=== PATIENT | male | born 1970 | race Caucasian/White ===

== ENCOUNTER 2020-11-29 22:55 | Emergency (ER) | payer MEDICARE, OTHER ==
--- NOTE | 2020-11-30 02:24 | CRLCT ---
For Patients: As a result of the Century Cures Act, medical imaging exams and procedure reports are released immediately into your electronic medical record. You may view this report before your referring provider. If you have questions, please contact your health care provider. INDICATION: Diplopia. Headache. TECHNIQUE: CT head without contrast. COMPARISON: None. FINDINGS: Cerebral parenchyma: No evidence of acute territorial infarct. No acute intraparenchymal hemorrhage. No significant mass effect/midline shift. Normal biggs-white matter differentiation. Extra-axial spaces: No extra-axial collection or hemorrhage. Ventricles: Unremarkable. Calvarium: Intact. Visualized paranasal sinuses/mastoid air cells: Mucosal opacification of the sphenoid sinuses. Posterior fossa: No cerebellar tonsillar herniation. Visualized orbits: Unremarkable. IMPRESSION: No acute intracranial abnormality. Please note that all CT scans at this facility use dose modulation, iterative reconstruction, and/or weight-based dosing when appropriate to reduce radiation dose to as low as reasonably achievable. Dictated by Sho Gleason MD @ 11/30/2020 2:22:[address] Sho Gleason @ Nov 30 2020 2:22AM
--- NOTE | 2020-11-30 03:00 | EDM.PDOC ---
ED HPI GENERAL MEDICAL PROBLEM - General Chief Complaint: General Stated Complaint: DOUBLE VISION Time Seen by Provider: 11/30/20 00:13 Source of Information: Reports: Patient, Family History Limitations: Reports: No Limitations - History of Present Illness INITIAL COMMENTS - FREE TEXT/NARRATIVE: Joel is a 50-year-old male presenting to the ED for evaluation of diplopia and staggering gait. Patient was in his usual state of health which includes being diabetic on insulin when he had the onset of his symptoms on Thursday developing diplopia. He was seen earlier this week by an certification and selection specialist who crafted a prism for him and told him that he had a diabetic stroke causing the double vision. The patient has subsequently developed a headache likely due to the double vision and some difficulty with ambulating with a staggering gait also likely due to the double vision. He has no new weakness, numbness or tingling, difficulty with breathing or swallowing. He denies any trauma. His glycemic control has been reasonable although he swings from the 50s all the way up to 350s when looking at his annika glucose monitor. The patient has a remote history of methamphetamine abuse but has moved in with his sister and no longer does this. He also abstains from alcohol. He does spend quite a bit of time outside in the sunlight on his fishing boat. He was actually fishing when he started to develop the double vision. - Related Data Allergies Allergy/AdvReac Type Severity Reaction Status Date / Time Penicillins Allergy Cannot Verified 11/29/20 23:46 Remember Past Medical History HEENT History: Reports: Cataract, Impaired Vision Cardiovascular History: Reports: CAD Gastrointestinal History: Reports: Cirrhosis, GERD Genitourinary History: Reports: Diabetic Nephropathy Musculoskeletal History: Reports: Osteoarthritis Neurological History: Reports: Neuropathy, Diabetic Psychiatric History: Reports: Panic Attack Endocrine/Metabolic History: Reports: Diabetes, Type II, Hypothyroidism - Past Surgical History HEENT Surgical History: Reports: Cataract Surgery Musculoskeletal Surgical History: Reports: Carpal Tunnel Social & Family History - Tobacco Use Tobacco Use Status *Q: Never Tobacco User - Recreational Drug Use Recreational Drug Use: Yes Drug Use in Last 12 Months: Yes Recreational Drug Type: Reports: Methamphetamine ED ROS GENERAL - Review of Systems Review Of Systems: See Below Constitutional: Reports: No Symptoms HEENT: Reports: Vision Change (Diplopia) Respiratory: Reports: No Symptoms Cardiovascular: Reports: No Symptoms Endocrine: Reports: No Symptoms GI/Abdominal: Reports: No Symptoms : Reports: No Symptoms Musculoskeletal: Reports: No Symptoms Skin: Reports: No Symptoms Neurological: Reports: Headache, Difficulty Walking (Patient was having difficulty walking today with a staggering gait. It is unclear whether this was due to his impaired vision or actual incoordination. The patient seems to do better with 1 eye closed.) Psychiatric: Reports: No Symptoms Hematologic/Lymphatic: Reports: No Symptoms Immunologic: Reports: No Symptoms ED EXAM, GENERAL - Physical Exam Exam: See Below Exam Limited By: No Limitations General Appearance: Alert, No Apparent Distress Eye Exam: Bilateral Eye: EOMI (Patient has a disconjugate gaze causing diplopia), PERRL Throat/Mouth: Normal Inspection, Normal Lips, Normal Oropharynx, Normal Voice, No Airway Compromise Head: Atraumatic, Normocephalic Neck: Normal Inspection, Supple, Non-Tender, Full Range of Motion Respiratory/Chest: No Respiratory Distress, Lungs Clear, Normal Breath Sounds Cardiovascular: Normal Peripheral Pulses, Regular Rate, Rhythm, No Murmur Peripheral Pulses: 2+: Radial (L), Radial (R), Posterior Tibial (L), Posterior Tibial (R) GI/Abdominal: Normal Bowel Sounds, Soft, Non-Tender Back Exam: Normal Inspection Extremities: Normal Inspection Neurological: Alert, Oriented, Normal Cognition, No Motor/Sensory Deficits. No: CN II-XII Intact (There is disconjugate gaze causing diplopia when doing the extraocular motion. At no point does the gaze come back to focus on one point.) Psychiatric: Normal Affect, Normal Mood Skin Exam: Warm, Dry, Other (Extremely tanned) Lymphatic: No Adenopathy Course - Vital Signs Last Recorded V/S: Last Vital Signs Temp 36.8 C 11/29/20 23:59 Pulse 87 11/30/20 02:35 Resp 20 11/30/20 02:35 BP 160/84 H 11/30/20 02:35 Pulse Ox 95 11/30/20 02:35 - Orders/Labs/Meds Orders: Active Orders 24 hr Category Date Time Status DRUG SCREEN, URINE [URCHEM] Stat Lab 11/30/20 02:35 Ordered UA W/MICROSCOPIC [URIN] Stat Lab 11/30/20 02:35 Ordered Labs: Laboratory Tests 11/30/20 11/30/20 Range/Units 00:48 00:48 WBC 8.4 (4.5-11.0) K/uL RBC 4.75 (4.30-5.90) M/uL Hgb 14.9 (12.0-15.0) g/dL Hct 41.2 (40.0-54.0) % MCV 87 (80-98) fL MCH 31 (27-31) pg MCHC 36 (32-36) % Plt Count 87 L (150-400) K/uL Neut % (Auto) 57.3 (36-66) % Lymph % (Auto) 29.5 (24-44) % Arthur % (Auto) 9.6 H (2-6) % Eos % (Auto) 3.1 (2-4) % Baso % (Auto) 0.5 (0-1) % Sodium 142 (140-148) mmol/L Potassium 3.4 L (3.6-5.2) mmol/L Chloride 106 (100-108) mmol/L Carbon Dioxide 24 (21-32) mmol/L Anion Gap 15.4 H (5.0-14.0) mmol/L BUN 23 H (7-18) mg/dL Creatinine 1.2 (0.8-1.3) mg/dL Est Cr Clr Drug Dosing 77.57 mL/min Estimated GFR (MDRD) > 60 (>60) Glucose 110 H (74-106) mg/dL Calcium 8.7 (8.5-10.1) mg/dL Total Bilirubin 1.8 H (0.2-1.0) mg/dL AST 61 H (15-37) U/L ALT 58 (12-78) U/L Alkaline Phosphatase 150 H (46-116) U/L C-Reactive Protein 0.46 H (0.0-0.3) mg/dL Total Protein 7.2 (6.4-8.2) g/dL Albumin 3.2 L (3.4-5.0) g/dL Globulin 4.0 H (2.3-3.5) g/dL Albumin/Globulin Ratio 0.8 L (1.2-2.2) - Radiology Interpretation Free Text/Narrative:: Reviewed the CT of the head without contrast showing no acute intracranial abnormalities, normal biggs-white differentiation without evidence of an acute stroke, bleed, mass, or midline shift. - Re-Assessments/Exams Free Text/Narrative Re-Assessment/Exam: 11/30/20 02:47 I reviewed the patient's CT of the head without contrast. There is no evidence for an acute or subacute stroke. There is no mass or midline shift. There is no intracranial hemorrhage or calvarial abnormality. I reviewed the patient's labs showing a leukocyte count of 8.4 with a hemoglobin of 14.9 and a hematocrit of 41.2. The patient's platelet count is low at 87, 000. His comprehensive metabolic panel is significant for a sodium of 142 with a potassium of 3.4, chloride of 106 with a bicarbonate of 24, BUN of 23 with a creatinine of 1.2 and a glucose of 110. GFR is calculated at greater than 60. The patient's AST is mildly elevated at 61 with an ALT of 58 and alkaline phosphatase of 150. His bilirubin total is elevated 1.8. C-reactive protein is mildly elevated at 0.46. 11/30/20 03:00 agata the case with the stroke neuro service at [facility]. He feels that this is probably a 3rd nerve palsy due to the diabetes. He reaffirmed that the patient should use the prism as much as possible and this may improve on its own. There is really no specific treatment other than the prism. Good glycemic control will help. There is no evidence on his work-up of an acute stroke. I am still awaiting his urinalysis results. 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 who feels that this is likely a 3rd nerve palsy indicating injury or inflammation of the nerve that controls your eye movement causing the double vision. This may be temporary condition that will require time to heal and repair itself. He recommended continuing using the prism glasses. Your work-up today has not shown any evidence for an acute stroke. Continue to work on better glycemic control which will likely improve your recovery from this injury. This nerve palsy is directly related to your diabetes. Sepsis Event Note (ED) - Evaluation Sepsis Screening Result: No Definite Risk - Focused Exam Vital Signs: Vital Signs Temp Pulse Resp BP Pulse Ox 11/30/20 02:35 87 20 160/84 H 95 11/29/20 23:59 36.8 C 85 20 163/89 H 96 11/29/20 23:58 36.8 C 85 20 163/89 H 96 - Problem List & Annotations (1) 3rd nerve palsy, partial SNOMED Code(s): 393552193, 910044579 Code(s): H49.00 - THIRD [OCULOMOTOR] NERVE PALSY, UNSPECIFIED EYE Status: A cute Priority: High Current Visit: Yes Qualifiers: Laterality: unspecified laterality Qualified Code(s): H49.00 - Third [oculomotor] nerve palsy, unspecified eye (2) Diplopia SNOMED Code(s): 33952684 Code(s): H53.2 - DIPLOPIA Status: Acute Priority: High Current Visit: Yes - Problem List Review Problem List Initiated/Reviewed/Updated: Yes - My Orders Last 24 Hours: My Active Orders 11/30/20 02:35 DRUG SCREEN, URINE [URCHEM] Stat UA W/MICROSCOPIC [URIN] Stat - Assessment/Plan Last 24 Hours: My Active Orders 11/30/20 02:35 DRUG SCREEN, URINE [URCHEM] Stat UA W/MICROSCOPIC [URIN] Stat
== END 2020-11-30 03:25 | disposition home or self-care (01) ==
LOC: JP.ED 22:55
DX: H49.00 Third [oculomotor] nerve palsy, unspecified eye (principal); I25.10 Atherosclerotic heart disease of native coronary artery without angina pectoris; E11.40 Type 2 diabetes mellitus with diabetic neuropathy, unspecified; E11.21 Type 2 diabetes mellitus with diabetic nephropathy; Z88.0 Allergy status to penicillin
CPT/HCPCS: 36415; 70450; 80053; 80305-QW; 81001; 85025; 86140; 99285-25

== ENCOUNTER 2023-02-22 21:15 | Emergency (ER) | payer MEDICARE, MEDICAID ==
[2023-02-22 21:39] LABS: BASOPHILS ABSOLUTE AUTO 0.06 K/uL (0.00-0.10); BASOPHILS PERCENT AUTO 0.9 % (0.1-1.3); EOSINOPHILS ABSOLUTE AUTO 0.32 K/uL (0.00-0.40); EOSINOPHILS PERCENT AUTO 4.7 % (0.0-5.4); HEMATOCRIT 34.4 % (38.4-49.7); HEMOGLOBIN 11.4 g/dL (12.9-16.9); IMMATURE GRAN PERCENT AUTO 0.3 % (0.0-0.7); LYMPHOCYTES ABSOLUTE AUTO 1.53 K/uL (0.8-3.3); LYMPHOCYTES PERCENT AUTO 22.6 % (11.4-47.7); MEAN CORPUSCULAR HGB CONC 33.1 g/dL (31.6-35.5); MEAN CORPUSCULAR VOLUME 93.5 fL (81.4-99.0); MONOCYTES ABSOLUTE AUTO 0.66 K/uL (0.20-0.90); MONOCYTES PERCENT AUTO 9.8 % (3.3-12.6); NEUTROPHILS ABSOLUTE AUTO 4.17 K/uL (1.0-7.6); NEUTROPHILS PERCENT AUTO 61.7 % (40.0-78.1); PLATELET COUNT,PLT 81 K/uL (130-375); RED BLOOD CELL COUNT 3.68 M/uL (4.14-5.76); WHITE BLOOD CELL COUNT,WBC 6.8 K/uL (3.2-11.0)
[2023-02-22 21:40] LABS: IMMATURE GRAN ABSOLUTE AUTO 0.02 K/uL (0.00-0.23)
[2023-02-22 22:01] LABS: A/G RATIO 0.7 (1.2-2.2); ALANINE AMINOTRANSFERASE,ALT 47 U/L (12-78); ALBUMIN 2.7 g/dL (3.4-5.0); ALKALINE PHOSPHATASE 124 U/L (46-116); ANION GAP 15.1 mmol/L (5.0-14.0); ASPARTATE AMNIOTRANSFERASE,AST 51 U/L (15-37); BILIRUBIN TOTAL 2.6 mg/dL (0.2-1.0); BLOOD UREA NITROGEN,BUN 10 mg/dL (7-18); CALCIUM 8.4 mg/dL (8.5-10.1); CARBON DIOXIDE,CO2 21 mmol/L (21-32); CHLORIDE,CL 106 mmol/L (100-108); EST CRCL DRUG DOSING (CG) 90.99 mL/min; ESTIMATED GFR 90 mL/min (>60); GLUCOSE RANDOM 96 mg/dL (74-106); POTASSIUM,K 4.1 mmol/L (3.6-5.2); PROTEIN TOTAL,TP 6.4 g/dL (6.4-8.2); SODIUM,NA 138 mmol/L (140-148)
[2023-02-22] MEDS ORDERED: Iopamidol 612 MG/ML 500 ML Multipack Bottle IV ONE (22:28)
[2023-02-22] MEDS ORDERED: Sodium Chloride 0.9% 50 ML IV SCH (22:30)
[2023-02-22] MEDS: Sodium Chloride 0.9% 10 ML Syringe FLUSH ONE ×2 (23:12→23:19)
[2023-02-23] MEDS ORDERED: Lactulose Soln 10 GM/15 ML 15 ML UD Cup PO ONE (00:15)
[2023-02-23] MEDS ORDERED: Ketorolac 15 MG/ML SDV IVPUSH ONE (01:54)
[2023-02-23] MEDS ORDERED: Acetaminophen 325 MG Tab PO ONE (01:54)
== END 2023-02-23 03:00 | disposition home or self-care (01) ==
LOC: JP.ED 21:15
DX: K59.00 Constipation, unspecified (principal); I25.10 Atherosclerotic heart disease of native coronary artery without angina pectoris; E11.9 Type 2 diabetes mellitus without complications; E03.9 Hypothyroidism, unspecified; Z87.891 Personal history of nicotine dependence; Z79.4 Long term (current) use of insulin; Z79.899 Other long term (current) drug therapy; Z88.0 Allergy status to penicillin
CPT/HCPCS: 36415; 74177; 80053; 80307; 82140; 83605; 85025; 86140; 96374; 99283; 99284; A9270; J1885; J3490; Q9967

== ENCOUNTER 2023-03-03 13:13 | Emergency (ER) | payer MEDICARE, MEDICAID ==
[2023-03-03] MEDS ORDERED: Sodium Chloride 0.9% 10 ML Syringe FLUSH PRN (13:53)
[2023-03-03] MEDS ORDERED: Lidocaine 1% 20 ML MDV INFILT ONE (13:53)
[2023-03-03 14:29] LABS: INR 1.2; PROTHROMBIN TIME 12.4 sec (9.2-10.6)
[2023-03-03 15:32] LABS: BODY FLUID TYPE PERITONEAL FLUID
[2023-03-03 15:32] LABS: BODY FLUID TYPE PERITONEAL FLUID
[2023-03-03 15:40] LABS: ALBUMIN,BODY FLUID < 0.6
[2023-03-03 15:45] LABS: LACTATE DEHYDROGENASE,BODY FL 73 IU/L; LIPASE,BODY FLUID 11 U/L
[2023-03-03 15:54] LABS: PROTEIN,BODY FLUID < 2 g/dL
[2023-03-03 15:54] LABS: PH,BODY FLUID 8
[2023-03-03 16:19] LABS: BODY FLUID TYPE PERITONEAL FLUID
[2023-03-03 16:20] LABS: MONONUCLEAR, BODY FLUID 84 %; POLYMORPHONUCLEAR, BODY FLUID 16 %; RBC,BODY FLUID 648 /ul; WBC BODY FLUID 79 /ul
== END 2023-03-03 16:47 | disposition home or self-care (01) ==
LOC: JP.ED 13:13
DX: K76.6 Portal hypertension (principal); K70.31 Alcoholic cirrhosis of liver with ascites; E11.9 Type 2 diabetes mellitus without complications; E03.9 Hypothyroidism, unspecified; I25.10 Atherosclerotic heart disease of native coronary artery without angina pectoris; K21.9 Gastro-esophageal reflux disease without esophagitis; Z79.84 Long term (current) use of oral hypoglycemic drugs; Z79.899 Other long term (current) drug therapy; Z88.0 Allergy status to penicillin
CPT/HCPCS: 36415; 49083; 82042; 82140; 83615; 83986; 84157; 85610; 87070; 87205; 89050; 99284; J3490

== ENCOUNTER 2023-04-20 16:04 | Observation (INO) | payer MEDICARE, MEDICAID ==
[2023-04-20 17:08] LABS: BASOPHILS ABSOLUTE AUTO 0.04 K/uL (0.00-0.10); BASOPHILS PERCENT AUTO 0.6 % (0.1-1.3); EOSINOPHILS ABSOLUTE AUTO 0.06 K/uL (0.00-0.40); EOSINOPHILS PERCENT AUTO 0.8 % (0.0-5.4); HEMATOCRIT 29.5 % (38.4-49.7); HEMOGLOBIN 9.5 g/dL (12.9-16.9); IMMATURE GRAN PERCENT AUTO 0.3 % (0.0-0.7); LYMPHOCYTES ABSOLUTE AUTO 1.12 K/uL (0.8-3.3); LYMPHOCYTES PERCENT AUTO 15.8 % (11.4-47.7); MEAN CORPUSCULAR HEMOGLOBIN 28.6 pg (31.6-35.5); MEAN CORPUSCULAR HGB CONC 32.2 g/dL (31.6-35.5); MEAN CORPUSCULAR VOLUME 88.9 fL (81.4-99.0); MONOCYTES ABSOLUTE AUTO 1.11 K/uL (0.20-0.90); MONOCYTES PERCENT AUTO 15.7 % (3.3-12.6); NEUTROPHILS ABSOLUTE AUTO 4.73 K/uL (1.0-7.6); NEUTROPHILS PERCENT AUTO 66.8 % (40.0-78.1); PLATELET COUNT,PLT 85 K/uL (130-375); RED BLOOD CELL COUNT 3.32 M/uL (4.14-5.76); WHITE BLOOD CELL COUNT,WBC 7.1 K/uL (3.2-11.0)
[2023-04-20 17:09] LABS: IMMATURE GRAN ABSOLUTE AUTO 0.02 K/uL (0.00-0.23)
[2023-04-20 17:29] LABS: INR 1.4; PROTHROMBIN TIME 13.8 sec (9.2-10.6)
[2023-04-20 17:30] LABS: A/G RATIO 0.7 (1.2-2.2); ALANINE AMINOTRANSFERASE,ALT 35 U/L (12-78); ALBUMIN 2.4 g/dL (3.4-5.0); ALKALINE PHOSPHATASE 87 U/L (46-116); ASPARTATE AMNIOTRANSFERASE,AST 59 U/L (15-37); BILIRUBIN TOTAL 2.5 mg/dL (0.2-1.0); BLOOD UREA NITROGEN,BUN 10 mg/dL (7-18); CALCIUM 7.7 mg/dL (8.5-10.1); CARBON DIOXIDE,CO2 22 mmol/L (21-32); CHLORIDE,CL 102 mmol/L (100-108); CREATININE 1.5 mg/dL (0.8-1.3); EST CRCL DRUG DOSING (CG) 60.66 mL/min; ESTIMATED GFR 55 mL/min (>60); GLUCOSE RANDOM 184 mg/dL (74-106); POTASSIUM,K 3.7 mmol/L (3.6-5.2); SODIUM,NA 133 mmol/L (140-148)
[2023-04-20 17:31] LABS: ANION GAP 12.7 mmol/L (5.0-14.0)
[2023-04-20 17:35] LABS: APPEARANCE,URINE CLEAR (CLEAR); BILIRUBIN,URINE NEGATIVE (NEGATIVE); COLOR,URINE YELLOW (YELLOW); GLUCOSE,URINE 500 mg/dL (NEGATIVE); KETONES,URINE NEGATIVE (NEGATIVE); LEUKOCYTE ESTERASE,URINE NEGATIVE (NEGATIVE); NITRITE,URINE NEGATIVE (NEGATIVE); OCCULT BLOOD,URINE NEGATIVE (NEGATIVE); PH,URINE 5.5 (5.0-8.0); PROTEIN,URINE NEGATIVE (NEGATIVE); UROBILINOGEN,URINE 0.2 EU/dL (0.2-1.0)
[2023-04-20 17:40] LABS: RBC,URINE NOT SEEN (0-5)
[2023-04-20 17:41] LABS: AMORPHOUS SEDIMENT,URINE NOT SEEN; BACTERIA,URINE RARE; EPITHELIAL CELLS,URINE RARE; MUCUS,URINE NOT SEEN; WBC,URINE NOT SEEN (0-5)
[2023-04-20 18:08] LABS: INFLUENZA A NAA NEGATIVE (NEGATIVE); INFLUENZA B NAA NEGATIVE (NEGATIVE); RESPIRATORY SYNCYTIAL VIR NAA NEGATIVE (NEGATIVE)
[2023-04-20 18:09] LABS: CORONAVIRUS COVID-19 NAA POSITIVE (NEGATIVE)
[2023-04-20] MEDS ORDERED: Sodium Chloride 0.9% 1,000 ML IV SCH (18:45)
[2023-04-20] MEDS ORDERED: Ondansetron 4 MG/2 ML SDV IV PRN (21:08)
[2023-04-20] MEDS ORDERED: HYDROmorphone 0.5 MG/0.5 ML Syringe IVPUSH PRN (21:08)
[2023-04-20] MEDS ORDERED: guaiFENesin/Dextromethorphan 100-10 MG/5 ML Soln 10 ML Cup PO PRN (21:08)
[2023-04-20] MEDS ORDERED: Acetaminophen 325 MG Tab PO PRN (21:08)
[2023-04-20] MEDS ORDERED: Magnesium Hydroxide 400 MG/5 ML Susp 30 ML Cup PO PRN (21:08)
[2023-04-20] MEDS ORDERED: Sennosides/Docusate Sodium 50-8.6 MG Tab PO PRN (21:08)
[2023-04-20] MEDS ORDERED: Ondansetron 4 MG Tab.DIS PO PRN (21:08)
[2023-04-20] MEDS: oxyCODONE 5 MG Tab PO PRN (21:29)
[2023-04-20] MEDS: Lactulose Soln 10 GM/15 ML 15 ML UD Cup PO SCH (21:58)
[2023-04-20] MEDS: Rifaximin 550 MG Tab PO SCH (21:59)
[2023-04-21] MEDS: oxyCODONE 5 MG Tab PO PRN (04:03)
[2023-04-21] MEDS ORDERED: Pantoprazole 40 MG Tab.CR PO SCH (07:30)
[2023-04-21] MEDS ORDERED: Levothyroxine 100 MCG Tab PO SCH (07:30)
[2023-04-21] MEDS: Lactulose Soln 10 GM/15 ML 15 ML UD Cup PO SCH (08:04)
[2023-04-21] MEDS: Rifaximin 550 MG Tab PO SCH (08:06)
[2023-04-21] MEDS ORDERED: Insulin Glargine,Human Rec. Analog 100 Units/ML 3 ML Pen SUBCUT SCH (09:00)
[2023-04-21] MEDS ORDERED: Pravastatin 20 MG Tab PO SCH (09:00)
[2023-04-21] MEDS ORDERED: Gabapentin 300 MG Cap PO SCH (09:00)
[2023-04-21] MEDS ORDERED: Liraglutide (rDNA Origin) 0.6 MG/0.1 ML 3 ML Pen SUBCUT SCH (09:00)
[2023-04-21] MEDS ORDERED: Non-Formulary Medication 1 Each (Insulin Degludec [Tresiba Flextouch U-200] 200 UNIT/ML Pe SQ SCH (09:00)
[2023-04-21] MEDS ORDERED: Empagliflozin 10 MG Tab PO SCH (09:00)
[2023-04-21] MEDS ORDERED: Spironolactone 25 MG Tab PO SCH (09:00)
[2023-04-21] MEDS ORDERED: Furosemide 40 MG Tab PO SCH (09:00)
[2023-04-21 09:59] LABS: BODY FLUID TYPE PERITONEAL FLUID; POLYMORPHONUCLEAR, BODY FLUID 6 %; RBC,BODY FLUID 1552 /ul; WBC BODY FLUID 100 /ul
[2023-05-25 09:11] LABS: MONONUCLEAR, BODY FLUID 94 %
== END 2023-04-21 10:55 | disposition home or self-care (01) ==
LOC: JP.ED 16:04 → JP.MS 19:55
PROVIDERS: ADMIT Internal Medicine; ATTEND Internal Medicine
DX: K70.31 Alcoholic cirrhosis of liver with ascites (principal); U07.1 COVID-19; I10 Essential (primary) hypertension; E11.51 Type 2 diabetes mellitus with diabetic peripheral angiopathy without gangrene; E11.40 Type 2 diabetes mellitus with diabetic neuropathy, unspecified; E11.21 Type 2 diabetes mellitus with diabetic nephropathy; K21.9 Gastro-esophageal reflux disease without esophagitis; E03.9 Hypothyroidism, unspecified; Z87.891 Personal history of nicotine dependence; Z98.890 Other specified postprocedural states; Z79.4 Long term (current) use of insulin; Z79.84 Long term (current) use of oral hypoglycemic drugs; Z79.890 Hormone replacement therapy; Z79.899 Other long term (current) drug therapy
CPT/HCPCS: 0241U; 36415; 49083; 74176; 80053; 80307; 81001; 82140; 82947; 83605; 83690; 85025; 85610; 89050; 96360; 96361; 99222; 99238; 99285; A9270; G0378; J1815; J7030

== ENCOUNTER 2023-05-29 11:49 | Emergency (ER) | payer MEDICARE, MEDICAID ==
[2023-05-29] MEDS ORDERED: Sodium Chloride 0.9% 10 ML Syringe FLUSH PRN (12:38)
[2023-05-29] MEDS ORDERED: Ondansetron 4 MG/2 ML SDV IVPUSH ONE (12:39)
[2023-05-29] MEDS ORDERED: Pantoprazole 40 MG Vial IVPUSH ONE (12:40)
[2023-05-29 12:51] LABS: BASOPHILS ABSOLUTE AUTO 0.03 K/uL (0.00-0.10); BASOPHILS PERCENT AUTO 0.3 % (0.1-1.3); EOSINOPHILS ABSOLUTE AUTO 0.03 K/uL (0.00-0.40); EOSINOPHILS PERCENT AUTO 0.3 % (0.0-5.4); HEMATOCRIT 27.1 % (38.4-49.7); HEMOGLOBIN 8.8 g/dL (12.9-16.9); IMMATURE GRAN ABSOLUTE AUTO 0.05 K/uL (0.00-0.23); IMMATURE GRAN PERCENT AUTO 0.5 % (0.0-0.7); LYMPHOCYTES ABSOLUTE AUTO 0.53 K/uL (0.8-3.3); LYMPHOCYTES PERCENT AUTO 5.5 % (11.4-47.7); MEAN CORPUSCULAR HEMOGLOBIN 27.8 pg (31.6-35.5); MEAN CORPUSCULAR HGB CONC 32.5 g/dL (31.6-35.5); MEAN CORPUSCULAR VOLUME 85.5 fL (81.4-99.0); MONOCYTES ABSOLUTE AUTO 0.52 K/uL (0.20-0.90); MONOCYTES PERCENT AUTO 5.4 % (3.3-12.6); PLATELET COUNT,PLT 98 K/uL (130-375); RED BLOOD CELL COUNT 3.17 M/uL (4.14-5.76); WHITE BLOOD CELL COUNT,WBC 9.6 K/uL (3.2-11.0)
[2023-05-29] MEDS ORDERED: Naloxone 0.4 MG/ML SDV IVPUSH PRN (12:53)
[2023-05-29] MEDS ORDERED: HYDROmorphone 0.5 MG/0.5 ML Syringe IVPUSH ONE (12:53)
[2023-05-29 13:11] LABS: INR 1.4; PROTHROMBIN TIME 14.3 sec (9.2-10.6); PTT,PARTIAL THROMBOPLSTIN TIME 28.1 sec (21.8-27.3)
[2023-05-29 13:13] LABS: A/G RATIO 0.7 (1.2-2.2); ALANINE AMINOTRANSFERASE,ALT 44 U/L (12-78); ALBUMIN 2.6 g/dL (3.4-5.0); ALKALINE PHOSPHATASE 123 U/L (46-116); ASPARTATE AMNIOTRANSFERASE,AST 56 U/L (15-37); BILIRUBIN TOTAL 2.3 mg/dL (0.2-1.0); BLOOD UREA NITROGEN,BUN 17 mg/dL (7-18); C-REACTIVE PROTEIN 1.52 mg/dL (<0.50); CALCIUM 7.3 mg/dL (8.5-10.1); CARBON DIOXIDE,CO2 20 mmol/L (21-32); CHLORIDE,CL 101 mmol/L (100-108); CREATININE 1.5 mg/dL (0.8-1.3); EST CRCL DRUG DOSING (CG) 60.66 mL/min; ESTIMATED GFR 55 mL/min (>60); GLUCOSE RANDOM 158 mg/dL (74-106); POTASSIUM,K 3.6 mmol/L (3.6-5.2); PROTEIN TOTAL,TP 6.1 g/dL (6.4-8.2); SODIUM,NA 132 mmol/L (140-148)
[2023-05-29 13:15] LABS: ANION GAP 14.6 mmol/L (5.0-14.0)
[2023-05-29] MEDS ORDERED: Sodium Chloride 0.9% 500 ML IV ONE (13:17)
== END 2023-05-29 14:54 | disposition home or self-care (01) ==
LOC: JP.ED 11:49
DX: K70.31 Alcoholic cirrhosis of liver with ascites (principal); I10 Essential (primary) hypertension; E11.21 Type 2 diabetes mellitus with diabetic nephropathy; E11.40 Type 2 diabetes mellitus with diabetic neuropathy, unspecified; I25.10 Atherosclerotic heart disease of native coronary artery without angina pectoris; K21.9 Gastro-esophageal reflux disease without esophagitis; E03.9 Hypothyroidism, unspecified; Z88.0 Allergy status to penicillin; Z79.899 Other long term (current) drug therapy
CPT/HCPCS: 36415; 74176; 80053; 83605; 83690; 85025; 85610; 85730; 86140; 96374; 96375; 99284; C9113; J1170; J2405; J3490; J7040

== ENCOUNTER 2023-08-13 18:47 | Emergency (ER) | payer MEDICARE, MEDICAID ==
[2023-08-13 20:01] LABS: BASOPHILS ABSOLUTE AUTO 0.05 K/uL (0.00-0.10); EOSINOPHILS ABSOLUTE AUTO 0.21 K/uL (0.00-0.40); EOSINOPHILS PERCENT AUTO 4.3 % (0.0-5.4); HEMATOCRIT 23.1 % (38.4-49.7); IMMATURE GRAN PERCENT AUTO 0.2 % (0.0-0.7); LYMPHOCYTES ABSOLUTE AUTO 0.97 K/uL (0.8-3.3); MEAN CORPUSCULAR HEMOGLOBIN 24.2 pg (31.6-35.5); MEAN CORPUSCULAR HGB CONC 29.4 g/dL (31.6-35.5); MEAN CORPUSCULAR VOLUME 82.2 fL (81.4-99.0); MONOCYTES ABSOLUTE AUTO 0.54 K/uL (0.20-0.90); MONOCYTES PERCENT AUTO 11.2 % (3.3-12.6); NEUTROPHILS ABSOLUTE AUTO 3.06 K/uL (1.0-7.6); NEUTROPHILS PERCENT AUTO 63.3 % (40.0-78.1); PLATELET COUNT,PLT 80 K/uL (130-375); RED BLOOD CELL COUNT 2.81 M/uL (4.14-5.76); WHITE BLOOD CELL COUNT,WBC 4.8 K/uL (3.2-11.0)
[2023-08-13 20:08] LABS: HEMOGLOBIN 6.8 g/dL (12.9-16.9); IMMATURE GRAN ABSOLUTE AUTO 0.01 K/uL (0.00-0.23)
[2023-08-13 20:20] LABS: A/G RATIO 0.7 (1.2-2.2); ALANINE AMINOTRANSFERASE,ALT 44 U/L (12-78); ALBUMIN 2.5 g/dL (3.4-5.0); ALKALINE PHOSPHATASE 127 U/L (46-116); ASPARTATE AMNIOTRANSFERASE,AST 45 U/L (15-37); BILIRUBIN TOTAL 1.8 mg/dL (0.2-1.0); BLOOD UREA NITROGEN,BUN 13 mg/dL (7-18); CALCIUM 8.4 mg/dL (8.5-10.1); CARBON DIOXIDE,CO2 20 mmol/L (21-32); CHLORIDE,CL 110 mmol/L (100-108); CREATININE 1.9 mg/dL (0.8-1.3); EST CRCL DRUG DOSING (CG) 45.89 mL/min; ESTIMATED GFR 41 mL/min (>60); GLUCOSE RANDOM 207 mg/dL (74-106); POTASSIUM,K 4.8 mmol/L (3.6-5.2); PROTEIN TOTAL,TP 6.3 g/dL (6.4-8.2); SODIUM,NA 140 mmol/L (140-148)
[2023-08-13 20:21] LABS: ANION GAP 14.8 mmol/L (5.0-14.0)
[2023-08-13 21:03] LABS: APPEARANCE,URINE CLEAR (CLEAR); BILIRUBIN,URINE NEGATIVE (NEGATIVE); COLOR,URINE YELLOW (YELLOW); GLUCOSE,URINE 500 mg/dL (NEGATIVE); KETONES,URINE NEGATIVE (NEGATIVE); LEUKOCYTE ESTERASE,URINE NEGATIVE (NEGATIVE); NITRITE,URINE NEGATIVE (NEGATIVE); OCCULT BLOOD,URINE NEGATIVE (NEGATIVE); PH,URINE 5.5 (5.0-8.0); PROTEIN,URINE NEGATIVE (NEGATIVE); UROBILINOGEN,URINE 0.2 EU/dL (0.2-1.0)
[2023-08-13 21:08] LABS: AMORPHOUS SEDIMENT,URINE NOT SEEN; BACTERIA,URINE RARE; EPITHELIAL CELLS,URINE NOT SEEN; MUCUS,URINE NOT SEEN; RBC,URINE 0-5 (0-5); WBC,URINE 0-5 (0-5)
[2023-08-14 00:19] LABS: CORONAVIRUS COVID-19 NAA NEGATIVE (NEGATIVE); INFLUENZA A NAA NEGATIVE (NEGATIVE); INFLUENZA B NAA NEGATIVE (NEGATIVE); RESPIRATORY SYNCYTIAL VIR NAA NEGATIVE (NEGATIVE)
[2023-08-14 04:05] LABS: HEMATOCRIT 27.5 % (38.4-49.7); HEMOGLOBIN 8.6 g/dL (12.9-16.9); MEAN CORPUSCULAR HEMOGLOBIN 25.9 pg (31.6-35.5); MEAN CORPUSCULAR HGB CONC 31.3 g/dL (31.6-35.5); MEAN CORPUSCULAR VOLUME 82.8 fL (81.4-99.0); RED BLOOD CELL COUNT 3.32 M/uL (4.14-5.76); WHITE BLOOD CELL COUNT,WBC 5.9 K/uL (3.2-11.0)
== END 2023-08-14 04:49 | disposition home or self-care (01) ==
LOC: JP.ED 18:47
DX: K70.30 Alcoholic cirrhosis of liver without ascites (principal); E72.20 Disorder of urea cycle metabolism, unspecified; D64.9 Anemia, unspecified; I25.10 Atherosclerotic heart disease of native coronary artery without angina pectoris; I10 Essential (primary) hypertension; E78.00 Pure hypercholesterolemia, unspecified; K21.9 Gastro-esophageal reflux disease without esophagitis; E11.9 Type 2 diabetes mellitus without complications; E03.9 Hypothyroidism, unspecified; Z86.16 Personal history of COVID-19; Z79.899 Other long term (current) drug therapy; Z79.4 Long term (current) use of insulin; Z88.0 Allergy status to penicillin
CPT/HCPCS: 0241U; 36415; 36430; 80053; 81001; 82140; 84484; 85025; 85027; 86140; 86850; 86900; 86901; 86920; 86922; 93005; 99285; P9016

== ENCOUNTER 2023-09-19 11:49 | Emergency (ER) | payer MEDICARE, MEDICAID ==
[2023-09-19 12:53] LABS: BASOPHILS ABSOLUTE AUTO 0.06 K/uL (0.00-0.10); BASOPHILS PERCENT AUTO 0.8 % (0.1-1.3); EOSINOPHILS ABSOLUTE AUTO 0.08 K/uL (0.00-0.40); EOSINOPHILS PERCENT AUTO 1.1 % (0.0-5.4); HEMATOCRIT 24.9 % (38.4-49.7); IMMATURE GRAN PERCENT AUTO 0.3 % (0.0-0.7); MEAN CORPUSCULAR HEMOGLOBIN 27.1 pg (31.6-35.5); MEAN CORPUSCULAR HGB CONC 32.1 g/dL (31.6-35.5); MEAN CORPUSCULAR VOLUME 84.4 fL (81.4-99.0); MONOCYTES ABSOLUTE AUTO 0.62 K/uL (0.20-0.90); MONOCYTES PERCENT AUTO 8.2 % (3.3-12.6); NEUTROPHILS ABSOLUTE AUTO 5.85 K/uL (1.0-7.6); NEUTROPHILS PERCENT AUTO 77.6 % (40.0-78.1); PLATELET COUNT,PLT 100 K/uL (130-375); RED BLOOD CELL COUNT 2.95 M/uL (4.14-5.76); WHITE BLOOD CELL COUNT,WBC 7.5 K/uL (3.2-11.0)
[2023-09-19 12:57] LABS: IMMATURE GRAN ABSOLUTE AUTO 0.02 K/uL (0.00-0.23)
[2023-09-19 13:13] LABS: INR 1.5; PROTHROMBIN TIME 15.1 sec (9.2-10.6); PTT,PARTIAL THROMBOPLSTIN TIME 30.8 sec (21.8-27.3)
[2023-09-19 13:23] LABS: A/G RATIO 0.8 (1.2-2.2); ALBUMIN 2.5 g/dL (3.4-5.0); BILIRUBIN DIRECT 1.06 mg/dL (0.0-0.2); BILIRUBIN INDIRECT 2.34; BILIRUBIN TOTAL 3.4 mg/dL (0.2-1.0); CALCIUM 7.8 mg/dL (8.5-10.1); CREATININE 1.7 mg/dL (0.8-1.3); EST CRCL DRUG DOSING (CG) 49.67 mL/min; POTASSIUM,K 5.2 mmol/L (3.6-5.2); PROTEIN TOTAL,TP 5.8 g/dL (6.4-8.2)
[2023-09-19 13:37] LABS: ANION GAP 14.2 mmol/L (5.0-14.0)
== END 2023-09-19 18:18 ==
LOC: JP.ED 11:49
DX: K72.10 Chronic hepatic failure without coma (principal); R18.8 Other ascites; I25.10 Atherosclerotic heart disease of native coronary artery without angina pectoris; E78.00 Pure hypercholesterolemia, unspecified; I10 Essential (primary) hypertension; E11.51 Type 2 diabetes mellitus with diabetic peripheral angiopathy without gangrene; E11.40 Type 2 diabetes mellitus with diabetic neuropathy, unspecified; E11.21 Type 2 diabetes mellitus with diabetic nephropathy; E03.9 Hypothyroidism, unspecified; K21.9 Gastro-esophageal reflux disease without esophagitis; Z88.0 Allergy status to penicillin; Z79.899 Other long term (current) drug therapy; Z86.16 Personal history of COVID-19; Z87.891 Personal history of nicotine dependence
CPT/HCPCS: 36415; 76705; 80048; 80076; 85025; 85610; 85730; 99285